=== PATIENT | female | born 1950 | race Caucasian/White ===

== ENCOUNTER 2020-01-10 10:33 | Emergency (ER) | payer OTHER, MEDICAID ==
[~2020-01-10] VITALS: Ht 165.1 cm; Wt 68.0 kg
[2020-01-10 10:37] VITALS: BP 128/71
[2020-01-10 19:03] VITALS: BP 120/62
== END 2020-01-10 19:03 ==
LOC: MED 10:33
DX: S93.602A Unspecified sprain of left foot, initial encounter (principal); E78.5 Hyperlipidemia, unspecified; Z87.820 Personal history of traumatic brain injury; W19.XXXA Unspecified fall, initial encounter; Y93.89 Activity, other specified; Y92.89 Other specified places as the place of occurrence of the external cause; Y99.8 Other external cause status
CPT/HCPCS: 73630; 99283; Q0092

== ENCOUNTER 2020-02-18 11:42 | Emergency (ER) | payer OTHER, MEDICAID ==
[~2020-02-18] VITALS: Ht 162.6 cm; Wt 61.2 kg
[2020-02-18 11:56] VITALS: BP 145/62
--- NOTE | 2020-02-18 13:25 | NUR ---
69 Y/O FEMALE C/O RIGHT ELBOW PAIN S/P FALL IN BATHROOM LAST NIGHT. PT DENIES ANY LOC/HEAD TRAUMA. PREVIOUS INJURY TO RIGHT ARM IN 1971 WHEN PATIENT WAS HOSPITALIZED. CHRONIC DEFORMITIES NOTED. CMS+, ABLE TO PERFORM ACTIVE ROM. PALPABLE PULSES 3+. PATIENT STATES PAIN IS 8/10 SHARP. CAP REFILL <3, SKIN INTACT.
[2020-02-18 14:02] VITALS: BP 145/62
== END 2020-02-18 14:03 ==
LOC: MED 11:42
DX: M25.521 Pain in right elbow (principal); K21.9 Gastro-esophageal reflux disease without esophagitis; W19.XXXA Unspecified fall, initial encounter; Y93.89 Activity, other specified; Y92.89 Other specified places as the place of occurrence of the external cause; Y99.8 Other external cause status
CPT/HCPCS: 73080; 99283

== ENCOUNTER 2020-04-05 15:39 | Emergency (ER) | payer OTHER, MEDICAID ==
[~2020-04-05] VITALS: Ht 160 cm; Wt 84.8 kg
[2020-04-05 15:44] VITALS: BP 174/52
[2020-04-05 19:26] VITALS: BP 168/49
== END 2020-04-05 19:25 ==
LOC: MED 15:39
DX: S09.90XA Unspecified injury of head, initial encounter (principal); K21.9 Gastro-esophageal reflux disease without esophagitis; I10 Essential (primary) hypertension; W19.XXXA Unspecified fall, initial encounter; Y93.89 Activity, other specified; Y92.89 Other specified places as the place of occurrence of the external cause; Y99.8 Other external cause status
CPT/HCPCS: 70450; 99284

== ENCOUNTER 2020-07-17 18:56 | Emergency (ER) | payer OTHER, MEDICAID ==
[~2020-07-17] VITALS: Ht 162.6 cm; Wt 61.7 kg
--- NOTE | 2020-07-17 18:56 | NUR ---
BIBA BLS TO ER BED 2
[2020-07-17 19:02] VITALS: BP 143/50
--- NOTE | 2020-07-17 19:10 | NUR ---
PT DUSTIN FROM [facility] FOR MECHANICAL FALL X 1 HOUR AGO. PT STATES SHE FELL WHEN TRYING TO MOVE FROM BATHROOM INTO WHEELCHAIR, PT HIT HEAD, DENIES LOC OR N/V. PT AOX4 PT STATES 5/10 THROBBING PAIN. BUMP NOTED TO BACK OF HEAD, TENDER TO TOUCH. NO REDNESS NOTED. PMH - HLD, HTN
--- NOTE | 2020-07-17 19:10 | NUR ---
DR RIVAS AT BEDSIDE EXAMINING PT
--- NOTE | 2020-07-17 19:19 | NUR ---
70 YEAR OLD FEMALE BIBA FROM [facility] COMPLAINS OF FALL X 2 HOURS HITTING BACK OF HEAD. PAIN 5/10, DULL, CONTINOUS, LOCAL. DENIES NAUSEA/VOMITING. BUMP VISIBLE ON BACK OF HEAD, TENDER TO TOUCH, NO REDNESS, NO OPEN WOUND. PER PT, SHE IS WHEELCHAIR BOUND, WHILE STANDING TO USE BATHROOM LOST BALANCE, FELL, AND HIT BACK OF HEAD. AO4, BREATHING EVEN AND UNLABORED, SKIN WARM AND DRY. BED IN LOWEST POSITION, LOCKED, X2 SIDERAILS UP. PMH - HTN, HYPERLIPIDEMIA NKA
--- NOTE | 2020-07-17 19:35 | NUR ---
REPORT RECEIVED FROM ERIC ROBERTS FOR CONTINUITY OF CARE
--- NOTE | 2020-07-17 19:35 | NUR ---
REPORT GIVEN TO ZACK ROBERTS. TRANSFER OF CARE AT THIS POINT.
--- NOTE | 2020-07-17 19:52 | NUR ---
PT TAKEN TO CT SCAN VIA JESSICA
[2020-07-17] MEDS ORDERED: ACETAMINOPHEN 325 MG TAB PO ONE (20:10)
--- NOTE | 2020-07-17 21:26 | NUR ---
PT PLACED ON BEDPAN
--- NOTE | 2020-07-17 22:31 | NUR ---
CALLED [facility] NO ANSWER. AWAITING FOR TRANSPORT.
--- NOTE | 2020-07-18 00:04 | NUR ---
PT RESTING IN BED EYES CLOSED, RESPIRATIONS EVEN AND UNLABORED. CHEST RISE IS SYMMETRICAL WILL CONTINUE TO MONITOR.
[2020-07-18] MEDS ORDERED: ACETAMINOPHEN 325 MG TAB PO ONE ×2 (03:15→10:35)
--- NOTE | 2020-07-18 03:16 | NUR ---
PT C/O HEAD PAIN 10/18. ERMD MADE AWARE. VERBAL ORDERS FOR TYLENOL.
--- NOTE | 2020-07-18 06:32 | NUR ---
PT RESTING IN BED EYES CLOSED, RESPIRATIONS EVEN AND UNLABORED. CHEST RISE IS SYMMETRICAL WILL CONTINUE TO MONITOR.
--- NOTE | 2020-07-18 07:12 | NUR ---
REPORT GIVEN TO BENJIE ROBERTS FOR CONTINUITY OF CARE
--- NOTE | 2020-07-18 07:25 | NUR ---
Received report from Laith ROBERTS for continuity of care.
--- NOTE | 2020-07-18 07:44 | NUR ---
Patient received in bed, awake, appears comfortable and in no signs of any distress. side-rails upx2, bed in low position. Will continue to monitor.
--- NOTE | 2020-07-18 08:07 | NUR ---
VS TAKEN. 131/68, 70, 14, 98.2F, DENIES PAIN.
--- NOTE | 2020-07-18 11:21 | NUR ---
ASSISTED PT TO USE BEDPAN. VOIDED. NO BM.
[2020-07-18 12:12] VITALS: BP 131/68
--- NOTE | 2020-07-18 12:13 | NUR ---
Patient discharged with v/s stable. Written and verbal after care instructions given and explained. Patient verbalized understanding. [facility]. All questions addressed prior to discharge. Advised to follow up with PMD.
== END 2020-07-18 12:00 ==
LOC: MED 18:56
DX: S00.03XA Contusion of scalp, initial encounter (principal); I10 Essential (primary) hypertension; K21.9 Gastro-esophageal reflux disease without esophagitis; E78.00 Pure hypercholesterolemia, unspecified; W07.XXXA Fall from chair, initial encounter; Y93.9 Activity, unspecified; Y92.89 Other specified places as the place of occurrence of the external cause; Y99.8 Other external cause status
CPT/HCPCS: 70450; 72125; 99285

== ENCOUNTER 2022-05-29 21:41 | Inpatient (IN) | payer OTHER, MEDICAID ==
[~2022-05-29] VITALS: Ht 162.6 cm; Wt 59.0 kg
[2022-05-29 21:46] VITALS: BP 142/82
--- NOTE | 2022-05-29 21:47 | NUR ---
PT DUSTIN BLS. TAKEN TO BED 8
--- NOTE | 2022-05-29 22:09 | NUR ---
72YR OLD FEMALE BIB EMS C/O SYNCOPE /WEAKNESS XTODAY. PT IS FROM [facility]. PT DENIES ANY CP SOB FEVER CHILIS N/V/D. PT IS A&OX4. HX OF CVA RIGHT SIDED WEAKNESS. 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 BED AT LOWEST LEVEL AND LOCKED IN PLACE. SIDE RAILS UP X2 NKA CVA BRAIN INJURY 1972 HEMIPARESIS R SIDE
--- NOTE | 2022-05-29 22:12 | NUR ---
Dr. Moon examining patient.
[2022-05-29] MEDS ORDERED: NACL 0.9% 1,000 ML IV ONE (22:20)
[2022-05-29 22:38] LABS: BASOPHILS % (AUTO) 0.4 % (0.0-2.0); EOSINOPHILS # (AUTO) 0.1 K/uL (0-0.4); EOSINOPHILS % (AUTO) 0.5 % (0.0-4.0); HEMOGLOBIN 12.1 g/dL (12.0-16.0); LYMPHOCYTES # (AUTO) 1.3 K/uL (2.5-16.5); LYMPHOCYTES % (AUTO) 13.4 % (20.5-51.1); MEAN CORPUSCULAR HEMOGLOBIN 32 pg (27-31); MEAN CORPUSCULAR HGB CONC 34 g/dL (33-37); MEAN CORPUSCULAR VOLUME 94.7 fL (80-94); MONOCYTES # (AUTO) 0.5 K/uL (0.8-1.0); MONOCYTES % (AUTO) 5.1 % (1.7-9.3); NEUTROPHILS # (AUTO) 8.1 K/uL (1.8-7.7); NEUTROPHILS % (AUTO) 80.6 % (42.2-75.2); PLATELET COUNT (AUTO) 319 K/uL (140-450); WHITE BLOOD COUNT (AUTO) 10.1 K/uL (4.8-10.8)
--- NOTE | 2022-05-29 23:02 | NUR ---
PT TAKEN TO RADIOLOGY
[2022-05-29 23:11] LABS: ANION GAP 11.7 (8-16); CARBON DIOXIDE 26.6 mmol/L (21-32); CHLORIDE 99 mmol/L (98-107); POTASSIUM 3.3 mmol/L (3.5-5.1); SODIUM SERUM 134 mmol/L (136-145)
[2022-05-29 23:12] LABS: CREATININE 0.5 mg/dL (0.6-1.3); GFR ARICAN-AMERICAN 157 mL/min (>90); UREA NITROGEN, BLOOD 9 mg/dL (7-18)
--- NOTE | 2022-05-29 23:13 | NUR ---
COVID AND FLU SWABS COLLECTED AND SENT TO LAB
[2022-05-29 23:15] LABS: APPEARANCE,URINE SL CLOUDY (CLEAR); BILIRUBIN,URINE NEGATIVE (NEGATIVE); BLOOD, URINE NEGATIVE (NEGATIVE); COLOR,URINE YELLOW (YELLOW); LEUKOCYTE ESTERASE ,URINE TRACE (NEGATIVE); NITRITE, URINE NEGATIVE (NEGATIVE); PH,URINE 7.5 (5.0-9.0); UGLUCOSE NEGATIVE (NEGATIVE)
[2022-05-29 23:20] LABS: RBC,URINE 0-5 /HPF (0-5); WBC,URINE 0-5 /HPF (0-5)
--- NOTE | 2022-05-29 23:21 | NUR ---
PT RETURN FROM CT
[2022-05-29 23:31] LABS: ASPARTATE AMINOTRANSFERASE 20 U/L (15-37); GLUCOSE 100 mg/dL (74-106); TOTAL BILIRUBIN 0.3 mg/dL (0.0-1.0)
[2022-05-30] MEDS ORDERED: cefTRIAXone 1,000 MG VIAL ONE (00:29)
--- NOTE | 2022-05-30 01:18 | NUR ---
ADMIT TO HOSPITAL . PT AWARE
[2022-05-30] MEDS ORDERED: NACL 0.9% 1,000 ML IV ONE (01:20)
[2022-05-30] MEDS ORDERED: ATOG60TA PO (01:34)
[2022-05-30] MEDS ORDERED: LOSA100T1 PO (01:34)
[2022-05-30] MEDS ORDERED: ATOR40TA PO (01:34)
[2022-05-30] MEDS ORDERED: NICO4GUM PO (01:34)
[2022-05-30] MEDS ORDERED: ERGO-30 PO (01:34)
[2022-05-30] MEDS ORDERED: ASPI-1822 PO (01:34)
[2022-05-30] MEDS ORDERED: ACET-2619 PO (01:34)
--- NOTE | 2022-05-30 02:14 | NUR ---
Patient will be admitted to care of [facility] . Admited to [facility]. Will go to room 123B. Belongings list completed. Report to ANISHA BLAND.
[2022-05-30 02:15] VITALS: BP 129/57
--- NOTE | 2022-05-30 02:15 | NUR ---
PT WHEELED BY ARMANDO VUONG TO [facility]. PT A/A/O. RESPIRATIONS EVEN AND UNLABORED ON RA. DENIES PAIN. NO SOB. NO DISTRESS NOTED. V/S TAKEN, STABLE. CONNECTED TO PUREWICK. SKIN INTACT, WARM AND DRY TO TOUCH. IV SITE ON LAC 20G. STARTED ON NS AT 60ML/HR. MRSA SWAB TAKEN AND SENT TO LAB. PT ORIENTED TO ROOM, UNIT AND ROUTINE. CALL LIGHT WITHIN REACH. SAFETY PRECAUTIONS IN PLACE.
[2022-05-30 04:00] VITALS: BP 120/62
--- NOTE | 2022-05-30 06:23 | NUR ---
PT AWAKE. COMFORTABLY SITTING IN BED WITH NO DISTRESS NOTED. NO C/O OF PAIN AND SOB. DIET AND STAT CODE FOLLOWED UP WITH MD. AWAITING FOR RESPONSE.
--- NOTE | 2022-05-30 07:30 | NUR ---
GAVE BEDSIDE REPORT TO DAY SHIFT RN VIMAL FOR CONTINUITY OF CARE. ALL NEEDS MET THROUGHOUT SHIFT. PT IS STABLE.
[2022-05-30 08:00] VITALS: BP 112/48
--- NOTE | 2022-05-30 08:01 | NUR ---
NURSES NOTE V RECEIVED PATIENT ON BED SIDE , A/OX3 , VSS , ON ROOM AIR , ON DIET , ON PUREWICK NO COMPLAIN AT THIS TIME , WILL CONTINUE OBSERVE .
[2022-05-30] MEDS ORDERED: DOCUSATE SODIUM 100 MG GELCAP PO PRN (09:00)
[2022-05-30] MEDS ORDERED: ACETAMINOPHEN 325 MG TAB PO PRN (09:00)
[2022-05-30] MEDS ORDERED: ZOLPIDEM 5 MG TAB PO PRN (09:00)
[2022-05-30] MEDS ORDERED: ONDANSETRON 4 MG/2 ML VIAL IM/IVP PRN (09:00)
[2022-05-30] MEDS ORDERED: HYDROcodone/APAP 7.5/325 MG 1 TAB PO PRN (09:00)
[2022-05-30] MEDS ORDERED: guaiFENesin DM 200/20 MG-10 ML 10 ML UDC PO PRN (09:00)
[2022-05-30] MEDS: PANTOPRAZOLE 40 MG TABEC PO SCH (09:41)
[2022-05-30] MEDS: AZITHROMYCIN 250 MG TAB PO SCH (09:41)
[2022-05-30] MEDS: POTASSIUM CHLORIDE 10 MEQ TABER PO PRN (09:41)
[2022-05-30] MEDS: NACL 0.9% 1,000 ML IV SCH ×2 (09:41→17:38)
[2022-05-30 10:14] LABS: PROTHROMBIN TIME 9.9 secs (10.8-13.4)
[2022-05-30 10:20] LABS: CHOL/HDL RATIO 1.6 (1-4.5); FREE T4 (FREE THYROXINE) 0.91 ng/dL (0.76-1.46); MAGNESIUM 1.8 mg/dL (1.8-2.4); PHOSPHORUS 2.9 mg/dL (2.5-4.9); THYROID STIMULATING HORMONE 1.2 uIU/mL (0.34-3.74)
--- NOTE | 2022-05-30 10:58 | NUR ---
PATIENT HAS BEEN SCREENED AND CATEGORIZED LOW NUTRITION RISK. PATIENT WILL BE SEEN WITHIN 7 DAYS OF ADMISSION. 06/06/[address] REVIEW[address] BY TAPAN HELMS RD
--- NOTE | 2022-05-30 11:00 | NUR ---
DISCHARGE PLANNING PATIENT IS A 72 YEAR OLD FEMALE ADMITTED TO [facility]/ED ON 05/30/2022 DUE TO UTI AND SYNCOPE. SW MEET WITH PATIENT AT BEDSIDE TO DISCUSS AND GATHER HER COLLATERAL INFORMATION, PATIENT WAS AWAKE AND ALERT ABLE TO PROVIDE HER OWN INFORMATION. PER PATIENT SHE COMES FORM [facility] AT [facility] FOR ABOUT A YEAR NOW. PER PATIENT SHE HAS GOOD FAMILY SUPPORT FROM HER SISTER BARBARA DE GUZMAN AND HER NIECE MARIBELL GAINES WHO ARE HER EMERGENCY CONTACT. PER PATIENT SHE DO NOT HAVE A.D. AND DECLINED INFO. FORMS PROVIDED BY SW PER PATIENT SHE IS WORKING ON GETTING A.D. IN PLACE WITH [facility] TO COMPLETE PAPER WORK AND HAVE HER SISTER AND NIECE ON A.D. DOCUMENTATION. PER PATIENT SHE HAS [employer] INSURANCE WHICH PROVIDE ALL SERVICES TO HER IN THE [facility]. PER PATIENT SHE HAD HER PCP IN [facility] HOWEVER; SINCE SHE CHANGE INSURANCE AND MOVED TO [facility] SHE HAS PCP DR. HINOJOSA WHO COMES AND SEE PATIENT AT [facility] LAS VISIT WAS ABOUT TWO WEEKS AGO. PER PATIENT SHE HAS NO ISSUES WITH MEDICATIONS DUE TO [employer]. PROVIDING AND SENDING MEDICATIONS DIRECTLY TO FACILITY AND HAVING STAFF GIVE HER MEDICATIONS ON TIME. PER PATIENT SHE HAS A WHEELCHAIR HER ONLY DME. PER PATIENT SHE WILL LIKE TO COMEBACK TO [facility] [place] WHEN SHE IS READY AND STABLE TO DISCHARGE FROM [facility]. SW THANKED PATIENT FOR THE INFORMATION SHE PROVIDED AND ENDED THE MEETING. SW CONTACT PATIENT'S ASSISTING LIVING AT [facility] . SPOKE TO EBER FROM ADMISSIONS TO DISCUSS AND CONFIRM PATIENT'S INFORMATION. PER EBER PATIENT HAS BEEN A RESIDENT IN THEIR FACILITY FOR ABOUT A YEAR AND HAS ALL INSURANCE SERVICES WITH [employer] WHO ALSO SET UP HER REGULAR APPOINTMENTS WITH PCP TO GO SEE THEM ON TUESDAYS OR THURSDAYS. PER EBER PATIENT IS WELCOME TO COME BACK TO THEIR FACILITY WHEN SHE IS READY AND STABLE TO DISCHARGE FROM [facility]. HE ALSO STATED THAT THEIR FACILITY HAS TRANSPORTATION UNTIL 3:00PM AND IF SHE NEEDS TO GET TRANSPORTED BACK TO FACILITY AT DISCHARGE, PATIENT'S NEEDS TO BE ARRANGE WITH THEIR FACILITY EARLY AND BEFORE 3:00PM. SW THANK HIM FOR THE INFORMATION AND ENDED THE CALL. SW/CM WILL FOLLOW UP NEEDED.
--- NOTE | 2022-05-30 13:28 | NUR ---
NURSES NOTE PATOIENT STABLE , NO COMPLAIN ON IV FLUID , STILL UNDER OBSERVE ,
--- NOTE | 2022-05-30 16:19 | NUR ---
NURSES NOTE PATIENT A/OX4 , VSS , ON IV FLUID N/S 0.9% RUINING 100CC /H , ON CARDIAC DIET , INCONTINENT , NO BOWEL MOVEMENT SKIN INTACT , WILL CONTINUA OBSERVE .
[2022-05-30 17:00] VITALS: BP 122/56
--- NOTE | 2022-05-30 19:19 | NUR ---
REPORT GIVEN TO TATYANA ROBERTS ALL HER QUESTION ANSWER .
--- NOTE | 2022-05-30 19:19 | NUR ---
REPORT GIVEN TO TATYANA ROBERTS ALL HER QUESTION ANSWER .
--- NOTE | 2022-05-30 19:20 | NUR ---
RECD. RESTING IN BED, AWAKE, A/OX3. RESPIRATION EVEN AND UNLABORED. IV OF NS INFUSING AT 100 ML/HR, LEFT AC G20. ON PURE WICK WITH CLEAR YELLOW URINE OUTPUT. FALL RISK, SAFETY MEASURES ENFORCED. ON IV ANTIBIOTICS. DENIES PAIN 0/10.
[2022-05-30 20:00] VITALS: BP 116/55
--- NOTE | 2022-05-30 20:00 | NUR ---
Patient's Plan of Care was discussed and reviewed with BALDO JOE
--- NOTE | 2022-05-30 20:00 | NUR ---
GOT WET, PURE WICK OUT OF PLACED. CLEANSED AND MADE COMFORTABLE IN BED.
--- NOTE | 2022-05-30 21:08 | NUR ---
RESTING COMFORTABLY IN BED. IV ROCEPHIN ADMINISTERED BY VARGHESE ROBERTS.
--- NOTE | 2022-05-30 22:00 | NUR ---
WARM BLANKET GIVEN. WATCHING TV.
--- NOTE | 2022-05-31 | NUR ---
SLEEPING COMFORTABLY IN BED, RESPIRATION EVEN AND UNLABORED.
--- NOTE | 2022-05-31 02:00 | NUR ---
ON HER RIGHT SIDE COMFORTABLY ASLEEP.
--- NOTE | 2022-05-31 04:00 | NUR ---
VS TAKEN, STABLE. NO COMPLAINT OF PAIN 0/10.
[2022-05-31] MEDS: NACL 0.9% 1,000 ML IV SCH ×2 (04:58→14:44)
--- NOTE | 2022-05-31 06:48 | NUR ---
CONDITION REMAIN STABLE. WILL ENDORSED TO AM SHIFT NURSE FOR CONTINUITY OF CARE.
[2022-05-31 07:07] LABS: T4 (THYROXINE) 5.3 ug/dL (4.5-12.0)
--- NOTE | 2022-05-31 07:19 | NUR ---
nurses note received patient at bed side , A/OX4 , vss ,incontinent , safety on place , no complain at this time bed rest ,on cardiac diet ,on iv fluid n/s 0.89% ruining 100cc/h , skin intact , still under observe .
[2022-05-31 08:12] LABS: BASOPHILS % (AUTO) 0.2 % (0.0-2.0); EOSINOPHILS # (AUTO) 0.1 K/uL (0-0.4); EOSINOPHILS % (AUTO) 1.5 % (0.0-4.0); HEMATOCRIT 33.1 % (36-48); HEMOGLOBIN 11.4 g/dL (12.0-16.0); LYMPHOCYTES # (AUTO) 1.2 K/uL (2.5-16.5); LYMPHOCYTES % (AUTO) 13.2 % (20.5-51.1); MEAN CORPUSCULAR HEMOGLOBIN 32 pg (27-31); MEAN CORPUSCULAR HGB CONC 34 g/dL (33-37); MEAN CORPUSCULAR VOLUME 93.2 fL (80-94); MONOCYTES # (AUTO) 0.7 K/uL (0.8-1.0); MONOCYTES % (AUTO) 8.1 % (1.7-9.3); NEUTROPHILS # (AUTO) 6.7 K/uL (1.8-7.7); PLATELET COUNT (AUTO) 314 K/uL (140-450); RED BLOOD CELL COUNT(AUTO) 3.55 MIL/uL (4.20-5.40); RED CELL DISTRIBUTION WIDTH 12.8 % (11.6-13.7); WHITE BLOOD COUNT (AUTO) 8.8 K/uL (4.8-10.8)
[2022-05-31 08:23] LABS: ANION GAP 11.1 (8-16); CREATININE 0.4 mg/dL (0.6-1.3); POTASSIUM 4.1 mmol/L (3.5-5.1)
[2022-05-31] MEDS: PANTOPRAZOLE 40 MG TABEC PO SCH (08:53)
[2022-05-31] MEDS: AZITHROMYCIN 250 MG TAB PO SCH (08:53)
[2022-05-31 09:39] VITALS: BP 124/63
--- NOTE | 2022-05-31 15:03 | NUR ---
ASSUMED CARE OVER PT. RECEIVED REPORT FROM RN.
[2022-05-31 16:00] VITALS: BP 116/62
--- NOTE | 2022-05-31 16:45 | NUR ---
DID ROUNDS ON PT. PT IN BED WATCHING TELEVISION AT THIS TIME. NO SIGNS OF DISTRESS. NO COMPLAINTS OF PAIN OR DISCOMFORT. WILL CONTINUE TO MONITOR.
--- NOTE | 2022-05-31 19:05 | NUR ---
ENDORSED PT TO DRIVER'S LICENSE REVIEWING OFFICER NURSE FOR CONTINUITY OF CARE. PT IS STABLE.
[2022-05-31 20:00] VITALS: BP 127/57
--- NOTE | 2022-05-31 20:00 | NUR ---
RECEIVED PT IN BED, ASLEEP, EASILY AROUSABLE. NO S/SX OF PAIN NOR DISCOMFORT. NO S/SX OF RESPIRATORY DISTRESS. SKIN WARM AND DRY TO TOUCH. IVF INFUSING WELL ORDERED. SAFETY PRECAUTIONS IN PLACE, CALL LIGHT IN REACH.
--- NOTE | 2022-05-31 22:03 | NUR ---
ROUNDING DONE. PT WITH EYES CLOSED. BREATHING EVEN AND UNLABORED.
--- NOTE | 2022-06-01 00:10 | NUR ---
ROUNDING DONE. PT ASLEEP. NO S/SX OF RESPIRATORY DISTRESS.
[2022-06-01] MEDS: NACL 0.9% 1,000 ML IV SCH ×3 (00:37→20:03)
[2022-06-01 04:00] VITALS: BP 100/46
--- NOTE | 2022-06-01 04:29 | NUR ---
PATIENT IS ASLEEP. NO S/SX OF DISTRESS. CALL LIGHT IN REACH.
[2022-06-01 06:14] LABS: CARBON DIOXIDE 28.5 mmol/L (21-32); CREATININE 0.4 mg/dL (0.6-1.3); POTASSIUM 3.5 mmol/L (3.5-5.1)
--- NOTE | 2022-06-01 06:26 | NUR ---
PATIENT IS ASLEEP. ALL NEEDS ATTENDED TO. NO DISTRESS NOTED. SAFETY PRECAUTIONS MAINTAINED, CALL LIGHT REMAINS WITHIN REACH.
[2022-06-01 07:27] LABS: BASOPHILS % (AUTO) 0.1 % (0.0-2.0); EOSINOPHILS # (AUTO) 0.2 K/uL (0-0.4); EOSINOPHILS % (AUTO) 2.8 % (0.0-4.0); HEMATOCRIT 30.3 % (36-48); HEMOGLOBIN 10.5 g/dL (12.0-16.0); LYMPHOCYTES # (AUTO) 0.8 K/uL (2.5-16.5); MEAN CORPUSCULAR HEMOGLOBIN 32 pg (27-31); MEAN CORPUSCULAR HGB CONC 35 g/dL (33-37); MEAN CORPUSCULAR VOLUME 93.1 fL (80-94); MONOCYTES # (AUTO) 0.8 K/uL (0.8-1.0); MONOCYTES % (AUTO) 9.4 % (1.7-9.3); NEUTROPHILS # (AUTO) 6.8 K/uL (1.8-7.7); NEUTROPHILS % (AUTO) 78.7 % (42.2-75.2); PLATELET COUNT (AUTO) 295 K/uL (140-450); RED BLOOD CELL COUNT(AUTO) 3.25 MIL/uL (4.20-5.40); RED CELL DISTRIBUTION WIDTH 12.9 % (11.6-13.7); WHITE BLOOD COUNT (AUTO) 8.7 K/uL (4.8-10.8)
[2022-06-01] MEDS: AZITHROMYCIN 250 MG TAB PO SCH (09:00)
[2022-06-01] MEDS: PANTOPRAZOLE 40 MG TABEC PO SCH (09:00)
[2022-06-01] MEDS ORDERED: CEPH-588 PO (09:29)
--- NOTE | 2022-06-01 19:30 | NUR ---
RECEIVED PATIENT IN BED AWAKE AND WATCHING TV. DENIES PAIN, DENIES SHORTNESS OF BREATH. SKIN WARM AND DRY TO TOUCH. SAFETY PRECAUTION IN PLACE, CALL LIGHT IN REACH.
--- NOTE | 2022-06-01 22:00 | NUR ---
PATIENT HAD A LARGE FORMED BROWN STOOL, CLEANED PT. POSITIONED FOR COMFORT. CALL LIGHT IN REACH.
[2022-06-02] VITALS: BP 114/55
--- NOTE | 2022-06-02 00:11 | NUR ---
VITAL SIGNS TAKEN AND DOCUMENTED. DENIES PAIN. CALL LIGHT IN REACH.
--- NOTE | 2022-06-02 02:12 | NUR ---
PATIENT IS ASLEEP. BREATHING EVEN AND UNLABORED. CALL LIGHT IN REACH.
[2022-06-02] MEDS: NACL 0.9% 1,000 ML IV SCH (04:30)
--- NOTE | 2022-06-02 04:45 | NUR ---
PT ASLEEP. BREATHING EVEN AND UNLABORED. CALL LIGHT IN REACH.
[2022-06-02 05:34] LABS: BASOPHILS % (AUTO) 0.1 % (0.0-2.0); EOSINOPHILS # (AUTO) 0.3 K/uL (0-0.4); EOSINOPHILS % (AUTO) 3.2 % (0.0-4.0); HEMOGLOBIN 11.3 g/dL (12.0-16.0); LYMPHOCYTES # (AUTO) 0.6 K/uL (2.5-16.5); LYMPHOCYTES % (AUTO) 6.1 % (20.5-51.1); MEAN CORPUSCULAR HEMOGLOBIN 33 pg (27-31); MEAN CORPUSCULAR HGB CONC 35 g/dL (33-37); MEAN CORPUSCULAR VOLUME 92.4 fL (80-94); MONOCYTES % (AUTO) 9.9 % (1.7-9.3); NEUTROPHILS % (AUTO) 80.7 % (42.2-75.2); PLATELET COUNT (AUTO) 289 K/uL (140-450); RED BLOOD CELL COUNT(AUTO) 3.46 MIL/uL (4.20-5.40); RED CELL DISTRIBUTION WIDTH 12.8 % (11.6-13.7)
[2022-06-02 06:30] LABS: ANION GAP 11.1 (8-16); CARBON DIOXIDE 30.3 mmol/L (21-32); CREATININE 0.4 mg/dL (0.6-1.3); POTASSIUM 3.4 mmol/L (3.5-5.1)
--- NOTE | 2022-06-02 06:38 | NUR ---
PATIENT IS ASLEEP. ALL NEEDS ATTENDED TO. NO DISTRESS NOTED. SAFETY PRECAUTIONS MAINTAINED, CALL LIGHT REMAINS WITHIN REACH.
--- NOTE | 2022-06-02 07:14 | NUR ---
RECEIVED REPORT FROM PROBATION COUNSELOR NURSE VANNESA FOR CONTINUITY OF CARE. PT AWAKE, SITTING IN BED. NO DISTRESS NOTED ON RA. SKIN INTACT, WARM AND DRY TO TOUCH. IV SITE ON RIGHT HAND INFUSING IVF. PUREWICK IN PLACE. CALL LIGHT WITHIN REACH. WITH DC ORDER YESTERDAY, BUT NOT DISCHARGED DUE TO NO AVAILABLE TRANSPORT AFTER 2PM. SAFETY PRECAUTIONS IN PLACE.
[2022-06-02 08:00] VITALS: BP 125/72
[2022-06-02] MEDS: PANTOPRAZOLE 40 MG TABEC PO SCH (08:26)
[2022-06-02] MEDS: AZITHROMYCIN 250 MG TAB PO SCH (08:26)
[2022-06-02] MEDS: POTASSIUM CHLORIDE 10 MEQ TABER PO PRN (08:27)
--- NOTE | 2022-06-02 08:30 | NUR ---
ADMINISTERED DUE MEDS. K-DUE ADMINISTERED FOR POTASSIUM 3.4. PT TEACHING ABOUT MEDS GIVEN. PT VERBALIZED UNDERSTANDING. PT TOLERATED WELL.
--- NOTE | 2022-06-02 08:53 | NUR ---
GAVE REPORT TO ARMANDO GONZÁLES.
[2022-06-02 10:39] VITALS: BP 125/72
--- NOTE | 2022-06-02 11:05 | NUR ---
PT CHECKED AND SEEN BY DR MAJOR. DISCUSSED DISCHARGE PAPERS WITH THE PT. PT VERBALIZED UNDERSTANDING.
--- NOTE | 2022-06-02 11:20 | NUR ---
PT DC TO [facility]. PT WHEELED VIA WHEELCHAIR BY NURSE TO [facility]. REMOVED IV CATHETER TIP INTACT. REMOVED ID WRIST BAND. ALL BELONGINGS TAKEN UPON DC. PT IS STABLE.
== END 2022-06-02 11:20 | DRG 698 ==
LOC: MED 21:41 → MTU 05-30 01:17
PROVIDERS: ADMIT Family Medicine; ATTEND Family Medicine
DX: T83.511A Infection and inflammatory reaction due to indwelling urethral catheter, initial encounter (principal); G93.41 Metabolic encephalopathy; E87.1 Hypo-osmolality and hyponatremia; I69.351 Hemiplegia and hemiparesis following cerebral infarction affecting right dominant side; N39.0 Urinary tract infection, site not specified; K21.9 Gastro-esophageal reflux disease without esophagitis; I10 Essential (primary) hypertension; E78.5 Hyperlipidemia, unspecified; E87.6 Hypokalemia; Z20.822 Contact with and (suspected) exposure to COVID-19
CPT/HCPCS: 36415; 70450; 71045; 80048; 80053; 81001; 82150; 83036; 83605; 83690; 83735; 83880; 84100; 84436; 84439; 84443; 84479; 84484; 85025; 85610; 85730; 87040; 87081; 87086; 96361; 96365; 99285; J0696; J7030; J7060; Q0092

== ENCOUNTER 2022-09-29 17:05 | Emergency (ER) | payer OTHER, MEDICAID ==
[~2022-09-29] VITALS: Ht 162.6 cm; Wt 56.7 kg
[~2022-09-29 17:05] MED LIST: ACET-2619 PO; ASPI-1822 PO; ATOG60TA PO; ATOR40TA PO; CEPH-588 PO; ERGO-30 PO; LOSA100T2 PO; NICO4GUM PO
[2022-09-29 17:14] VITALS: BP 138/74
--- NOTE | 2022-09-29 18:07 | NUR ---
AWAKE AND ALERT IN BED, RECALLS EVENT YESTERDAY, NO LOC. MILD BRUISING ON R KNEE NOTED. BRUISE ON R ORBIT NOTED. RETURNED FROM CT
[2022-09-29] MEDS ORDERED: ACETAMINOPHEN EXTRA STRENGTH 500 MG TAB PO ONE (18:30)
[2022-09-29 19:16] LABS: BASOPHILS # (AUTO) 0.1 K/uL (0.00-0.22); BASOPHILS % (AUTO) 0.5 % (0.0-2.0); EOSINOPHILS # (AUTO) 0.2 K/uL (0-0.4); HEMATOCRIT 35.8 % (36-48); HEMOGLOBIN 12.3 g/dL (12.0-16.0); LYMPHOCYTES % (AUTO) 20.4 % (20.5-51.1); MEAN CORPUSCULAR HEMOGLOBIN 31 pg (27-31); MEAN CORPUSCULAR HGB CONC 34 g/dL (33-37); MONOCYTES # (AUTO) 0.9 K/uL (0.8-1.0); MONOCYTES % (AUTO) 9.4 % (1.7-9.3); NEUTROPHILS # (AUTO) 6.8 K/uL (1.8-7.7); NEUTROPHILS % (AUTO) 67.7 % (42.2-75.2); PLATELET COUNT (AUTO) 318 K/uL (140-450); RED BLOOD CELL COUNT(AUTO) 3.94 MIL/uL (4.20-5.40); RED CELL DISTRIBUTION WIDTH 13.3 % (11.6-13.7)
[2022-09-29 19:22] LABS: APPEARANCE,URINE CLEAR (CLEAR); BILIRUBIN,URINE NEGATIVE (NEGATIVE); BLOOD, URINE TRACE-I (NEGATIVE); COLOR,URINE YELLOW (YELLOW); LEUKOCYTE ESTERASE ,URINE 1+ (NEGATIVE); NITRITE, URINE NEGATIVE (NEGATIVE); PH,URINE 6.5 (5.0-9.0); UGLUCOSE NEGATIVE (NEGATIVE)
[2022-09-29 19:36] LABS: ALBUMIN 4.1 g/dL (3.4-5.0); ANION GAP 9.6 (8-16); CREATININE 0.5 mg/dL (0.6-1.3); POTASSIUM 3.6 mmol/L (3.5-5.1); TOTAL BILIRUBIN 0.3 mg/dL (0.0-1.0)
[2022-09-29 20:11] VITALS: BP 138/74
[2022-09-29] MEDS ORDERED: NITR100C7 PO (20:15)
--- NOTE | 2022-09-29 20:17 | NUR ---
72YR OLD FEMALE C/O R EYE ECCHYMOSIS/SWELLING R KNEE PAIN S/P FALL. PT IS A&OX4. DENIES PAIN CP OR SOB. PT IS FROM [facility] PENDING DISPO NKDA
--- NOTE | 2022-09-29 20:38 | NUR ---
Patient discharged with v/s stable. Written and verbal after care instructions given and explained. Patient verbalized understanding. Wheel Chair Assisted with by caregiver. All questions addressed prior to discharge. Advised to follow up with PMD.
== END 2022-09-29 20:38 | disposition home or self-care (01) ==
LOC: MED 17:05
DX: S80.01XA Contusion of right knee, initial encounter (principal); S00.83XA Contusion of other part of head, initial encounter; N39.0 Urinary tract infection, site not specified; I10 Essential (primary) hypertension; K21.9 Gastro-esophageal reflux disease without esophagitis; Z86.73 Personal history of transient ischemic attack (TIA), and cerebral infarction without residual deficits; Z79.899 Other long term (current) drug therapy; W18.30XA Fall on same level, unspecified, initial encounter; Y93.89 Activity, other specified; Y92.89 Other specified places as the place of occurrence of the external cause; Y99.8 Other external cause status
CPT/HCPCS: 36415; 70450; 70486; 71045; 72125; 73562; 80053; 81001; 85025; 87086; 93005; 99285; Q0092